=== PATIENT | female | born 1955 | race Caucasian/White ===

== ENCOUNTER 2019-11-07 13:48 | Emergency (ER) | payer OTHER ==
[~2019-11-07] VITALS: Ht 165.1 cm; Wt 92.0 kg
--- NOTE | 2019-11-07 14:21 | NUR ---
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
--- NOTE | 2019-11-07 14:30 | NUR ---
Pt to room in . Pt with left lower back pain after fall early this morning. Pt slipped in water falling onto a tiled surface directly onto her back. Needed assistance changing and getting into bed. Moving all extremities. Hx of depression. No other pmh.
[2019-11-07] MEDS ORDERED: HYDROcodone/APAP 5/325 TABLET ONE (14:46)
--- NOTE | 2019-11-07 14:50 | NUR ---
REPORT FROM ZEENAT BURGESS. PT MEDICATED PER EMAR FOR "MINIMAL" LOW BACK PAIN, R>L. DENIES INCONTINENCE/NUMBNESS/TINGLING.
--- NOTE | 2019-11-07 14:50 | NUR ---
Report to Radha
[2019-11-07] MEDS ORDERED: HYDROcodone/APAP 5/325 TABLET PO ONE (15:00)
--- NOTE | 2019-11-07 16:05 | NUR ---
PT REPORTS IMPROVED PAIN. UP DATED TO POC (RECHECK) AND DEMONSTRATES UNDERSTANDING.
--- NOTE | 2019-11-07 16:15 | NUR ---
AWAITING BRACE, PT UPDATED TO DELAY IN DISPO
[2019-11-07 16:48] VITALS: BP 135/72
--- NOTE | 2019-11-07 17:15 | NUR ---
PT ASSISTED TO DRESS. AWAITING CUSTOMER SERVICE AND SALES CONSULTANT FOR BRACE
--- NOTE | 2019-11-07 17:39 | NUR ---
ORTHO PRO TECH IN TO FIT LUMBAR BRACE. DC EDUCATION PROVIDED, PT DEMONSTRATES UNDERSTANDING. PT TRANSFERED SELF TO WHEELCHAIR AT BEDSIDE. WHEELED TO DC WITH RN. FRIEND TO TRANSPORT PT HOME. PT EDUCATED TO NOT DRIVE WHILE ON PAIN MEDICATIONS
== END 2019-11-07 17:41 | disposition home or self-care (01) ==
LOC: ED 16:18
DX: S32.010A Wedge compression fracture of first lumbar vertebra, initial encounter for closed fracture (principal); S32.050A Wedge compression fracture of fifth lumbar vertebra, initial encounter for closed fracture; W01.0XXA Fall on same level from slipping, tripping and stumbling without subsequent striking against object, initial encounter; Y93.89 Activity, other specified; Y92.89 Other specified places as the place of occurrence of the external cause; Y99.8 Other external cause status
CPT/HCPCS: 72131; 99284